=== PATIENT | male | born 1940 | race Caucasian/White ===

== ENCOUNTER 2016-10-25 16:53 | Emergency (ER) | payer MEDICARE ==
[2016-10-25 14:36] LABS: ASCORBIC ACID (UR NOT ORDER) 40 (NEG); BILIRUBIN, URINE NEGATIVE (NEG); ER URINALYSIS TAT 0 Hrs 28 Mins; KETONE, URINE NEGATIVE (NEG); LEUKOCYTE ESTERASE(NOT OR SMALL (NEG); NITRITE (URINE) NEG (NEG); WBC (NOT ORDERED) (RFLEX) 27 (0-5)
[~2016-10-25 16:53] MED LIST: 8 HOUR650 MG PO; ALBUTEROL0.083 % INH; ASAB PO; BREO ELLIPTA INH; DSS PO; FERROUS SULF325 M1 PO; FLOMAX4 PO; INCRUSE ELLI62.5 MCG INH; KLONO5 PO; LEVAQUIN750 MG PO; LIDODERM TOP; LOVAZA1 GM PO; MELA3 PO; MIRALAX POWDER1 PKT PO; MULTIVITAMI1 PO; NITROSTAT0.4 MG SL; NORCO1 TAB PO; NOVOLOG SC; NYS500UDL MT; PROBIOTIC PO; PROTONIX PO; SENTAB PO; SODCLTAB PO; SPIRIVA INH; SYMBICORT 160/41 INH INH; VITAMIN D1000 UNI1 PO; VOLTAREN1 % TOP; X5 PO; ZINC220C PO; ZOFRAN4 PO; ZYVOXPO PO
== END 2016-10-25 17:39 | disposition home or self-care (01) ==
LOC: ER 16:53
PROVIDERS: Physician Assistant
DX: R33.9 Retention of urine, unspecified (principal); E87.1 Hypo-osmolality and hyponatremia; J44.9 Chronic obstructive pulmonary disease, unspecified; Z87.01 Personal history of pneumonia (recurrent); E11.9 Type 2 diabetes mellitus without complications; Z87.891 Personal history of nicotine dependence; Z79.82 Long term (current) use of aspirin; Z79.899 Other long term (current) drug therapy; Z79.4 Long term (current) use of insulin
CPT/HCPCS: 71010; 81001; 87040; 87086; 99285